=== PATIENT | female | born 1960 | race Caucasian/White ===

== ENCOUNTER 2016-03-23 22:38 | Emergency (ER) | payer BC ==
[~2016-03-23] VITALS: Ht 167.6 cm; Wt 100.0 kg
[~2016-03-23 22:38] MED LIST: ALEVE220 MG PO; CEPHALEXIN500 M1 PO; CETIRIZINE PO; CIPRO 500MG TA500 MG PO; CLIMARA 0.1 PATCH.WK TD; CLIMARA. TD; CLIMARA0.1 MG/24 TD; CLINDAMAX TP; DEMEROL 50M50 MG/TAB PO; IMODIUM 2MG CAPS2 MG PO; LISINOPRIL5 MG PO; LOPERAMIDE HCL2 MG PO; LORTAB 5/500 501 TAB PO; METRONIDAZOLE500 MG PO; PHENERGAN 25 TA25 MG PO; PRAVACHOL 20MG20 MG PO; PRILOSEC 20MG20 MG PO; PROMETRIUM200 MG PO; TOPROL XL 25MG25 MG PO; VITAMIN D32000 IU PO; VITAMIN D50000 I1 PO; VITAMIN D50000 IU PO; ZIANA 1.2%-0.021 GEL; [UNRECOGNIZED DRUG - OTHER] TP; prometrium PO; tetracycline PO
[2016-03-23 22:42] VITALS: TEMP 98.5
[2016-03-23] MEDS ORDERED: MULTIPLE VITAMI1 CAP PO (23:14)
[2016-03-23] MEDS ORDERED: PHOS LO (23:15)
[2016-03-23] MEDS ORDERED: ZOFRAN8 MG PO (23:18)
[2016-03-23] MEDS ORDERED: ULTRAM 50MG TAB50 MG PO (23:18)
[2016-03-23 23:25] LABS: BASO # 0.1 (0.0-0.2); BASO % 0.3 % (0.0-2.0); EOS # 0.1 (0.0-0.7); EOS % 0.5 % (0-4.0); GRAN # 16.2 (1.4-6.5); GRAN % 86.6 % (42.2-75.2); HEMATOCRIT 46.5 % (37.0-47.0); HEMOGLOBIN 15.5 g/dl (12.5-16.0); LYMPH # 1.7 (1.2-3.4); MEAN CELL VOLUME 87 fl (80.0-100.0); MEAN CORPUSCULAR HEMOGLOBIN 29 pg (27.0-31.0); MEAN CORPUSCULAR HGB CONC 33 g/dl (33.0-37.0); MEAN PLATELET VOLUME 10.7 fl (7.4-10.4); MONO # 0.6 (0.1-0.6); MONO % 3.2 % (1.7-9.3); PLATELET COUNT 312 K/mm3 (130-400); RED BLOOD COUNT 5.36 M/mm3 (4.10-5.30); REDCELL DISTRIBUTION WIDTH-CV 13.8 % (11.5-14.5); WHITE BLOOD COUNT 18.7 K/mm3 (4.8-10.8)
[2016-03-23 23:34] LABS: ADJUSTED CALCIUM 9.7 mg/dL (8.4-10.2); ALBUMIN 4.9 gm/dL (3.5-5.0); BILIRUBIN,TOTAL 0.8 mg/dL (0.0-1.0); CALCIUM 10.4 mg/dL (8.4-10.2); CREATININE, serum 0.98 mg/dL (0.52-1.25); TOTAL PROTEIN 8.7 gm/dL (6.4-8.2)
[2016-03-24 00:34] VITALS: BP 118/73; PULSE 62
== END 2016-03-24 00:46 | disposition home or self-care (01) ==
LOC: COL.ER 22:38
PROVIDERS: Emergency Medicine
DX: R10.13 Epigastric pain (principal); R11.10 Vomiting, unspecified; R19.7 Diarrhea, unspecified; Z90.49 Acquired absence of other specified parts of digestive tract; I10 Essential (primary) hypertension
CPT/HCPCS: J1885; J2175; J2405; J7030

== ENCOUNTER → 2016-05-21 | Outpatient (CLI) | payer BC ==
[~2016-05-21] MED LIST changes: +MULTIPLE VITAMI1 CAP PO; +PHOS LO; +ULTRAM 50MG TAB50 MG PO; +ZOFRAN8 MG PO
== END ==
LOC: MC.RAD 13:20
DX: Z12.31 Encounter for screening mammogram for malignant neoplasm of breast (principal)

== ENCOUNTER 2017-07-06 08:18 | Observation (INO) | payer BC ==
[~2017-07-06] VITALS: Ht 167.6 cm; Wt 102.0 kg
[~2017-07-06 08:18] MED LIST changes: +ESTROGEL0.06% TOP; +PROMETRIUM200 M1 PO; -PROMETRIUM200 MG PO
[2017-07-06 08:53] LABS: BASO # 0.1 (0.0-0.2); BASO % 0.4 % (0.0-2.0); EOS # 0.2 (0.0-0.7); EOS % 0.9 % (0-4.0); GRAN # 13.5 (1.4-6.5); GRAN % 79.7 % (42.2-75.2); HEMATOCRIT 46.7 % (37.0-47.0); HEMOGLOBIN 15.5 g/dl (12.5-16.0); LYMPH # 2.3 (1.2-3.4); LYMPH % 13.5 % (20.0-51.0); MEAN CELL VOLUME 88 fl (80.0-100.0); MEAN CORPUSCULAR HEMOGLOBIN 29 pg (27.0-31.0); MEAN CORPUSCULAR HGB CONC 33 g/dl (33.0-37.0); MEAN PLATELET VOLUME 10.3 fl (7.4-10.4); MONO # 0.9 (0.1-0.6); MONO % 5.1 % (1.7-9.3); PLATELET COUNT 315 K/mm3 (130-400); RED BLOOD COUNT 5.29 M/mm3 (4.10-5.30); REDCELL DISTRIBUTION WIDTH-CV 13.7 % (11.5-14.5)
[2017-07-06 09:08] LABS: ALBUMIN 4.7 gm/dL (3.5-5.0); BILIRUBIN,TOTAL 0.7 mg/dL (0.0-1.0); C-REACTIVE PROTEIN 2.5 mg/dL (0.0-0.9); CALCIUM 10.7 mg/dL (8.4-10.2); CREATININE, serum 0.89 mg/dL (0.52-1.25); POTASSIUM 4.2 mmol/L (3.4-5.0); TOTAL PROTEIN 9.1 gm/dL (6.4-8.2)
[2017-07-06 10:42] LABS: COLLECTION METHOD CLEAN CATCH
[2017-07-06 10:48] LABS: MUCOUS Present /lpf; SQUAMOUS EPITHELIAL 0-2 /hpf; URINE BACTERIA None Seen /hpf; URINE RBC 0-2 /hpf
[2017-07-06 10:52] LABS: URINE APPEARANCE Clear; URINE COLOR Straw
[2017-07-06 10:53] LABS: PH 5 (5-8); URINE BILIRUBIN Negative (NEGATIVE); URINE BLOOD 1+ (NEGATIVE); URINE GLUCOSE Negative (NEGATIVE); URINE KETONE Negative (NEGATIVE); URINE LEUKOCYTE ESTERASE Negative (NEGATIVE); URINE NITRATE Negative (NEGATIVE); URINE PROTEIN(semi-quant) Negative (NEGATIVE); URINE UROBILINOGEN Negative (NEGATIVE)
[2017-07-06 12:06] VITALS: BP 109/45; PULSE 63; TEMP 97.6
[2017-07-06 12:50] VITALS: BP 109/45; PULSE 63; TEMP 97.6
[2017-07-06 16:21] LABS: HEMATOCRIT 44.9 % (37.0-47.0); HEMOGLOBIN 14.5 g/dl (12.5-16.0); MEAN CELL VOLUME 91 fl (80.0-100.0); MEAN CORPUSCULAR HEMOGLOBIN 29 pg (27.0-31.0); MEAN CORPUSCULAR HGB CONC 32 g/dl (33.0-37.0); MEAN PLATELET VOLUME 10.5 fl (7.4-10.4); PLATELET COUNT 258 K/mm3 (130-400); RED BLOOD COUNT 4.93 M/mm3 (4.10-5.30); REDCELL DISTRIBUTION WIDTH-CV 13.6 % (11.5-14.5)
[2017-07-06 16:28] VITALS: BP 117/48; PULSE 72; TEMP 98.9
[2017-07-06 17:10] LABS: BAND 27 % (0-10); EOSINOPHIL 1 % (0-4); LYMPHOCYTE 6 % (20.0-51.0); NEUTROPHILS 63 % (42.0-75.2)
[2017-07-06 17:13] LABS: PLATELET ESTIMATE NORMAL (NORMAL)
[2017-07-06 19:30] VITALS: BP 102/44; PULSE 70; TEMP 99
[2017-07-06 23:53] VITALS: BP 123/48; PULSE 65; TEMP 98.3
[2017-07-07 03:07] VITALS: BP 103/44; PULSE 71; TEMP 98.6
[2017-07-07 06:39] LABS: BASO % 0.2 % (0.0-2.0); EOS # 0.1 (0.0-0.7); EOS % 1.1 % (0-4.0); GRAN # 6.5 (1.4-6.5); GRAN % 69.5 % (42.2-75.2); LYMPH % 21.8 % (20.0-51.0); MEAN CELL VOLUME 92 fl (80.0-100.0); MEAN CORPUSCULAR HEMOGLOBIN 29 pg (27.0-31.0); MEAN CORPUSCULAR HGB CONC 32 g/dl (33.0-37.0); MEAN PLATELET VOLUME 10.2 fl (7.4-10.4); MONO # 0.7 (0.1-0.6); MONO % 7.1 % (1.7-9.3); PLATELET COUNT 238 K/mm3 (130-400); RED BLOOD COUNT 4.22 M/mm3 (4.10-5.30)
[2017-07-07 06:43] LABS: HEMOGLOBIN 12.4 g/dl (12.5-16.0)
[2017-07-07 06:54] LABS: CALCIUM 8.4 mg/dL (8.4-10.2); CREATININE, serum 0.92 mg/dL (0.52-1.25); POTASSIUM 3.8 mmol/L (3.4-5.0)
[2017-07-07 07:18] VITALS: BP 104/46; PULSE 59; TEMP 98.2
[2017-07-07 11:13] VITALS: BP 121/57; PULSE 75; TEMP 98.5
[2017-07-07 15:21] VITALS: BP 110/48; PULSE 77; TEMP 97.9
== END 2017-07-07 16:10 | disposition home or self-care (01) ==
LOC: COL.ER 08:18 → SURG 10:22
PROVIDERS: Emergency Medicine; Surgery
DX: K56.609 Unspecified intestinal obstruction, unspecified as to partial versus complete obstruction (principal); Z80.0 Family history of malignant neoplasm of digestive organs; Z88.2 Allergy status to sulfonamides; Z88.5 Allergy status to narcotic agent; Z88.1 Allergy status to other antibiotic agents; Z88.8 Allergy status to other drugs, medicaments and biological substances; Z88.6 Allergy status to analgesic agent
CPT/HCPCS: G0378; J1170; J2405; J2550; J3010; J7030; J7120; Q9967

== ENCOUNTER 2018-08-09 04:56 | Inpatient (IN) | payer BC ==
[~2018-08-09] VITALS: Ht 167.6 cm; Wt 103.7 kg
[2018-08-09 05:23] LABS: BASO # 0.1 (0.0-0.2); BASO % 0.4 % (0.0-2.0); EOS # 0.3 (0.0-0.7); EOS % 1.8 % (0-4.0); GRAN # 10.3 (1.4-6.5); HEMATOCRIT 44.4 % (37.0-47.0); HEMOGLOBIN 14.5 g/dl (12.5-16.0); LYMPH # 2.1 (1.2-3.4); LYMPH % 15.1 % (20.0-51.0); MEAN CELL VOLUME 90 fl (80.0-100.0); MEAN CORPUSCULAR HEMOGLOBIN 30 pg (27.0-31.0); MEAN CORPUSCULAR HGB CONC 33 g/dl (33.0-37.0); MEAN PLATELET VOLUME 9.8 fl (7.4-10.4); MONO # 0.8 (0.1-0.6); MONO % 6.1 % (1.7-9.3); PLATELET COUNT 282 K/mm3 (130-400); RED BLOOD COUNT 4.91 M/mm3 (4.10-5.30); REDCELL DISTRIBUTION WIDTH-CV 13.4 % (11.5-14.5)
[2018-08-09 05:48] LABS: ALANINE AMINOTRANSFERASE 12 U/L (9-52); ALBUMIN 4.5 gm/dL (3.5-5.0); ALKALINE PHOSPHATASE 102 U/L (50-136); ANION GAP 13 mmol/L (7-16); AST,SGOT 22 U/L (15-37); BILIRUBIN,TOTAL 0.5 mg/dL (0.0-1.0); BLOOD UREA NITROGEN 20 mg/dL (7-17); C-REACTIVE PROTEIN 2.1 mg/dL (0.0-0.9); CALCIUM 10.5 mg/dL (8.4-10.2); CARBON DIOXIDE 20 mmol/L (22-30); CHLORIDE 106 mmol/L (98-107); CREATININE, serum 0.83 (0.52-1.25); GLUCOSE 109 mg/dL (74-106); LIPASE 116 U/L (23-300); POTASSIUM 4.2 mmol/L (3.4-5.0); SODIUM 139 mmol/L (137-145)
[2018-08-09 05:59] LABS: TROPONIN-I < 0.012 ng/mL (0.000-0.035)
[2018-08-09 09:58] LABS: COLLECTION METHOD CLEAN CATCH
[2018-08-09 10:04] LABS: MUCOUS Present /lpf; PH 5 (5-8); URINE APPEARANCE Clear; URINE BACTERIA None Seen /hpf; URINE BILIRUBIN Negative (NEGATIVE); URINE BLOOD Negative (NEGATIVE); URINE COLOR Yellow; URINE GLUCOSE Negative (NEGATIVE); URINE KETONE Negative (NEGATIVE); URINE LEUKOCYTE ESTERASE Negative (NEGATIVE); URINE NITRATE Negative (NEGATIVE); URINE PROTEIN(semi-quant) Negative (NEGATIVE); URINE UROBILINOGEN Negative (NEGATIVE)
[2018-08-09] MEDS ORDERED: VITAMIND3 5000 PO (11:06)
[2018-08-09] MEDS ORDERED: TUMS500 MG PO (11:07)
[2018-08-09] MEDS ORDERED: CALCIUM 600 PLU1 TAB PO (11:07)
[2018-08-09] MEDS ORDERED: BENADRYL25 M2 PO (11:09)
[2018-08-09] MEDS ORDERED: EPIPEN 2-PAK1 MG/ML IM (11:10)
[2018-08-09 11:43] VITALS: BP 110/65; PULSE 50; TEMP 97.5
[2018-08-09 15:11] VITALS: BP 110/53; PULSE 62; TEMP 98
--- NOTE | 2018-08-09 17:16 | NUR ---
Pt resting in bed with spouse at bedside. Pt alert and oriented. Pt rates abd pain at 2/10. Pt states that the demerol and zofran combination worked very well. No N/V. Pt had med soft loose BM and clear yellow output. Pt IV has LR running per orders no redness or infiltration noted. gave phone orer for SCD's.
--- NOTE | 2018-08-09 19:10 | NUR ---
Pt Zofran order changed to Q4 per TORB from DR. Capone. Pt given Zofran and Demerol for nausea and pain managemnet for small bowel obstruction. Pt denies further needs and has call light in reach and spouse at bedside.
[2018-08-09 19:25] VITALS: BP 119/70; PULSE 55; TEMP 98.1
--- NOTE | 2018-08-09 20:59 | NUR ---
PT IN BED RESTING. PT WAS GIVEN PAIN MEDICATION BEFORE SHIFT START. PT CALLS AFTER EVERY STOOL. PT A/O X4. NO NEEDS AT THIS TIME, CALL LIGHT WITHIN REACH.
[2018-08-09 23:01] VITALS: BP 110/62; PULSE 56; TEMP 98.3
--- NOTE | 2018-08-10 02:17 | NUR ---
PT SLEEPING/RESTING WITH NO S/S OF PAIN OR DISCOMFORT NOTED. CALL LIGHT WITHIN REACH.
[2018-08-10 03:40] VITALS: BP 134/63; PULSE 71; TEMP 98.1
[2018-08-10 06:09] LABS: BASO % 0.3 % (0.0-2.0); EOS # 0.1 (0.0-0.7); GRAN # 4.1 (1.4-6.5); HEMATOCRIT 37.6 % (37.0-47.0); LYMPH # 1.8 (1.2-3.4); MEAN CELL VOLUME 92 fl (80.0-100.0); MEAN CORPUSCULAR HEMOGLOBIN 29 pg (27.0-31.0); MEAN CORPUSCULAR HGB CONC 31 g/dl (33.0-37.0); MEAN PLATELET VOLUME 9.7 fl (7.4-10.4); MONO # 0.5 (0.1-0.6); MONO % 7.4 % (1.7-9.3); PLATELET COUNT 221 K/mm3 (130-400); REDCELL DISTRIBUTION WIDTH-CV 13.3 % (11.5-14.5)
[2018-08-10 06:23] LABS: HEMOGLOBIN 11.8 g/dl (12.5-16.0)
[2018-08-10 06:33] LABS: CALCIUM 8.5 mg/dL (8.4-10.2); CREATININE, serum 0.83 (0.52-1.25); POTASSIUM 3.8 mmol/L (3.4-5.0)
--- NOTE | 2018-08-10 06:59 | NUR ---
UNEVENTFUL NIGHT. PT DID NOT C/O PAIN UNTIL ABOUT 0545 THIS AM. PT HAD HEADACHE RATED AT 4/10 AND PT REQUEST DEMORAL FOR PAIN, WELL ZOFRAN FOR NAUSEA. PT RECEIVED MEDICATION AND WENT BACK TO SLEEP. CALL LIGHT WITHIN REACH.
[2018-08-10 08:31] VITALS: BP 118/70; PULSE 62; TEMP 97.9
--- NOTE | 2018-08-10 09:44 | NUR ---
Pt assessment complete and charted. Pt c/o headache, administered tylenol PRN per APR. Denies chest pain, SOB, dizziness, abdominal pain. No guarding or tenderness on abdominal assessment. Denies vomiting, reports some nausea w/ headache. Received zofran and demerol this morning per shift supervisor melting nurse. Diet advanced to clear liquids, IV INT if tolerating liquids. No other needs at this time. Pt up to shower. Call light within reach.
--- NOTE | 2018-08-10 10:40 | NUR ---
Initial visit; Patient indisposed, Roads Superintendent spoke with her who said their Wrong Address Clerk was aware of Nedra's hospitalization.
[2018-08-10 11:47] VITALS: BP 125/62; PULSE 62; TEMP 97.8
--- NOTE | 2018-08-10 11:50 | NUR ---
Pt laying in bed family and friend at bedside. This nurse checked in on pt to see how she was tolerating liquids and if her headache improved. Pt reports "feeling a lot better. Ate some jello, was going to try and eat some more here in a few". Denies nausea and pain. Call light within reach.
--- NOTE | 2018-08-10 16:28 | NUR ---
SW met with patient about discharge planning. Patient lives independently at home with her . Patient's PCP was Dr Bo and she obtains prescriptions from [facility]. Patient does not have any difficulties obtaining medications. Patient reports she does not have a DPOA-HC and is not interested in obtaining one at this time. SW does not anticipate any discharge needs.
--- NOTE | 2018-08-10 16:30 | NUR ---
patient c/o headache. This nurse administered tylenol PRN per APR. patient to order lunch since diet was advanced to general. No other new complaints at this time.
[2018-08-10 16:59] VITALS: BP 141/62; PULSE 62; TEMP 98.2
[2018-08-10 18:52] VITALS: BP 120/62; PULSE 65; TEMP 98.5
--- NOTE | 2018-08-10 19:00 | NUR ---
Report given to J CARLOS Pan. Patient states her headache is at a 2 or 3 out of 10. Tolerated food well, ate about 80-90%. No complaints of n/v or abdominal pain.
--- NOTE | 2018-08-10 21:30 | NUR ---
Pt. sitting up in bed at this time. Pt. is A&OX3, assessment complete. Pt. denies pain or other needs at this time. Call light within reach
[2018-08-10 22:59] VITALS: BP 108/55; PULSE 67; TEMP 98.6
[2018-08-11 04:06] VITALS: BP 107/37; PULSE 69; TEMP 98.1
--- NOTE | 2018-08-11 07:00 | NUR ---
Report received from J CARLOS Pan. PT in bed resting, anticipating discharge today, will conitnue to monitor.
[2018-08-11 08:07] VITALS: BP 116/60; PULSE 70; TEMP 98.3
--- NOTE | 2018-08-11 08:30 | NUR ---
Assessment charted. Pt feeling well, has no pain, having bowel movements. INT to dc'd, tip intact. Discharge packet reviewed, discussed f/u, no new medications. Answered all qeustions. Pt left with all belongings, escorted out by medical staff, to drive home, criteria met.
== END 2018-08-11 08:30 | disposition home or self-care (01) | DRG 389 ==
LOC: COL.ER 04:56 → MEDICAL 07:21
PROVIDERS: Emergency Medicine; ADMIT Surgery
DX: K56.50 Intestinal adhesions [bands], unspecified as to partial versus complete obstruction (principal); K51.90 Ulcerative colitis, unspecified, without complications; I10 Essential (primary) hypertension; M19.90 Unspecified osteoarthritis, unspecified site; G43.909 Migraine, unspecified, not intractable, without status migrainosus; Z88.1 Allergy status to other antibiotic agents; Z88.2 Allergy status to sulfonamides; Z88.8 Allergy status to other drugs, medicaments and biological substances; Z93.8 Other artificial opening status
CPT/HCPCS: J1170; J2175; J2405; J3010; J7030; J7120; Q9967

== ENCOUNTER 2019-02-14 08:48 | Inpatient (IN) | payer BC ==
[~2019-02-14] VITALS: Ht 167.6 cm; Wt 101.5 kg
[~2019-02-14 08:48] MED LIST changes: +BENADRYL25 M2 PO; +CALCIUM 600 PLU1 TAB PO; +EPIPEN 2-PAK1 MG/ML IM; +TUMS500 MG PO; +VITAMIND3 5000 PO
[2019-02-14 10:18] LABS: BASO % 0.3 % (0.0-2.0); EOS % 0.2 % (0-4.0); GRAN # 11.4 (1.4-6.5); GRAN % 88.4 % (42.2-75.2); HEMATOCRIT 45.7 % (37.0-47.0); HEMOGLOBIN 14.7 g/dl (12.5-16.0); LYMPH % 7.9 % (20.0-51.0); MEAN CELL VOLUME 91 fl (80.0-100.0); MEAN CORPUSCULAR HEMOGLOBIN 29 pg (27.0-31.0); MEAN CORPUSCULAR HGB CONC 32 g/dl (33.0-37.0); MEAN PLATELET VOLUME 10.1 fl (7.4-10.4); MONO # 0.4 (0.1-0.6); MONO % 2.8 % (1.7-9.3); PLATELET COUNT 278 K/mm3 (130-400); RED BLOOD COUNT 5.03 M/mm3 (4.10-5.30); REDCELL DISTRIBUTION WIDTH-CV 13.3 % (11.5-14.5)
[2019-02-14 10:31] LABS: ALBUMIN 4.8 gm/dL (3.5-5.0); BILIRUBIN,TOTAL 0.5 mg/dL (0.0-1.0); CREATININE, serum 0.94 (0.52-1.25); TOTAL PROTEIN 8.2 gm/dL (6.4-8.2)
[2019-02-14 10:48] LABS: COLLECTION METHOD CLEAN CATCH
[2019-02-14 10:57] LABS: MUCOUS Present /lpf; PH 8 (5-8); URINE APPEARANCE Cloudy; URINE BACTERIA Rare /hpf; URINE BILIRUBIN Negative (NEGATIVE); URINE BLOOD Negative (NEGATIVE); URINE COLOR Yellow; URINE GLUCOSE Negative (NEGATIVE); URINE KETONE Trace (NEGATIVE); URINE LEUKOCYTE ESTERASE Negative (NEGATIVE); URINE NITRATE Negative (NEGATIVE); URINE PROTEIN(semi-quant) 1+ (NEGATIVE); URINE UROBILINOGEN Negative (NEGATIVE)
[2019-02-14 15:05] VITALS: BP 118/53; PULSE 63; TEMP 97.9
[2019-02-14 15:06] VITALS: BP 118/53; PULSE 63; TEMP 97.9
[2019-02-14 20:06] VITALS: BP 99/44; PULSE 65; TEMP 97.9
[2019-02-14 23:11] VITALS: BP 95/44; PULSE 65; TEMP 98.3
[2019-02-15 03:39] VITALS: BP 109/55; PULSE 60; TEMP 98.1
[2019-02-15 07:03] LABS: BASO % 0.1 % (0.0-2.0); EOS # 0.2 (0.0-0.7); EOS % 3.2 % (0-4.0); GRAN # 4.3 (1.4-6.5); GRAN % 59.7 % (42.2-75.2); HEMATOCRIT 37.9 % (37.0-47.0); LYMPH # 2.1 (1.2-3.4); LYMPH % 29.8 % (20.0-51.0); MEAN CORPUSCULAR HGB CONC 31 g/dl (33.0-37.0); MEAN PLATELET VOLUME 10.4 fl (7.4-10.4); MONO # 0.5 (0.1-0.6); MONO % 6.9 % (1.7-9.3); PLATELET COUNT 220 K/mm3 (130-400); RED BLOOD COUNT 3.97 M/mm3 (4.10-5.30); REDCELL DISTRIBUTION WIDTH-CV 13.6 % (11.5-14.5)
[2019-02-15 07:16] LABS: HEMOGLOBIN 11.7 g/dl (12.5-16.0); MEAN CELL VOLUME 96 fl (80.0-100.0); MEAN CORPUSCULAR HEMOGLOBIN 29 pg (27.0-31.0)
[2019-02-15 07:19] LABS: CREATININE, serum 0.77 (0.52-1.25); POTASSIUM 4.2 mmol/L (3.4-5.0)
[2019-02-15 08:07] VITALS: BP 107/45; PULSE 57; TEMP 98.2
[2019-02-15 11:50] VITALS: BP 123/62; PULSE 66; TEMP 97.5
== END 2019-02-15 15:30 | disposition home or self-care (01) | DRG 390 ==
LOC: COL.ER 08:48 → SURG 11:30
PROVIDERS: Nurse Practitioner Primary Care; ADMIT Surgery
DX: K56.51 Intestinal adhesions [bands], with partial obstruction (principal); I10 Essential (primary) hypertension; Z90.49 Acquired absence of other specified parts of digestive tract; Z98.51 Tubal ligation status; Z90.89 Acquired absence of other organs; Z87.442 Personal history of urinary calculi
CPT/HCPCS: J1170; J2405; J3480; J7030; Q9967

== ENCOUNTER → 2019-02-23 | Outpatient (CLI) | payer BC | LOC: MC.RAD 13:17 | DX: Z12.31 Encounter for screening mammogram for malignant neoplasm of breast (principal) ==

== ENCOUNTER 2019-06-14 12:51 | Observation (INO) | payer BC ==
[~2019-06-14] VITALS: Ht 167.6 cm; Wt 105.4 kg
[2019-06-14 13:31] LABS: BASO # 0.1 (0.0-0.2); BASO % 0.4 % (0.0-2.0); EOS # 0.1 (0.0-0.7); EOS % 0.8 % (0-4.0); GRAN # 12.6 (1.4-6.5); GRAN % 82.9 % (42.2-75.2); HEMATOCRIT 46.8 % (37.0-47.0); HEMOGLOBIN 15.3 g/dl (12.5-16.0); LYMPH # 1.6 (1.2-3.4); LYMPH % 10.6 % (20.0-51.0); MEAN CELL VOLUME 89 fl (80.0-100.0); MEAN CORPUSCULAR HEMOGLOBIN 29 pg (27.0-31.0); MEAN CORPUSCULAR HGB CONC 33 g/dl (33.0-37.0); MONO # 0.7 (0.1-0.6); MONO % 4.8 % (1.7-9.3); PLATELET COUNT 270 K/mm3 (130-400); RED BLOOD COUNT 5.27 M/mm3 (4.10-5.30); REDCELL DISTRIBUTION WIDTH-CV 13.6 % (11.5-14.5)
[2019-06-14 13:50] LABS: ALBUMIN 4.9 gm/dL (3.5-5.0); BILIRUBIN,TOTAL 0.6 mg/dL (0.0-1.0); C-REACTIVE PROTEIN 1.7 mg/dL (0.0-0.9); CALCIUM 10.2 mg/dL (8.4-10.2); CREATININE, serum 0.84 (0.52-1.25); POTASSIUM 4.2 mmol/L (3.4-5.0); TOTAL PROTEIN 8.6 gm/dL (6.4-8.2)
[2019-06-14 15:56] VITALS: BP 126/59; PULSE 65; TEMP 97.9
--- NOTE | 2019-06-14 16:20 | NUR ---
Account Support Associate met with patient to discuss discharge planning. Patient lives in [place] with her , Raymundo (ph#[phone]) [address] sees Dr. Bo for primary care. Patient obtains medications from [facility] with no difficulties. Patient does not use DME and reports [facility] AD[facility]. Patient reports she has DPOA-HC paperwork located somewhere at home. Patient plans to return home upon discharge. No additional needs at this time.
--- NOTE | 2019-06-14 16:25 | NUR ---
Contacted Dr. Torres, initial and 5 page complete. Patient oriented to room. States she had a BM when she got up to the floor. INT to left forarm. States she has been having cramping abdominal pain. Denies need for pain medications at this time.
--- NOTE | 2019-06-14 18:54 | NUR ---
Patient has done well this afternoon. Dilaudid given this afternoon for abdominal cramping 08/23, states relief after administration. Fluids infusing per orders. Patient independent in room. Has had x3 BM since up to floor, loose per patient. Denies further needs at this time. Will report off to mine shifter.
[2019-06-14 19:49] VITALS: BP 93/45; PULSE 70; TEMP 98.5
--- NOTE | 2019-06-14 20:30 | NUR ---
Initial shift assessment done- denies abd pain/or cramping at this time- abd soft- hypoactive bowel sounds - states did have 3 loose small stools on day shift- Iv fluids of D5 NS w/20KCL at 75cc/hr
[2019-06-15 00:15] VITALS: BP 88/43; PULSE 63; TEMP 98.6
[2019-06-15 03:46] VITALS: BP 98/49; PULSE 58; TEMP 98
--- NOTE | 2019-06-15 05:33 | NUR ---
Very Quiet night- no requests for pain meds- has been sleeping well, Up to the bathroom now ,denies any needs-remains NPO
[2019-06-15 06:40] LABS: BASO % 0.3 % (0.0-2.0); EOS # 0.2 (0.0-0.7); EOS % 2.1 % (0-4.0); GRAN # 5.4 (1.4-6.5); GRAN % 67.6 % (42.2-75.2); HEMATOCRIT 38.7 % (37.0-47.0); LYMPH # 1.8 (1.2-3.4); MEAN CELL VOLUME 92 fl (80.0-100.0); MEAN CORPUSCULAR HEMOGLOBIN 30 pg (27.0-31.0); MEAN CORPUSCULAR HGB CONC 33 g/dl (33.0-37.0); MEAN PLATELET VOLUME 9.9 fl (7.4-10.4); MONO # 0.5 (0.1-0.6); MONO % 6.7 % (1.7-9.3); PLATELET COUNT 221 K/mm3 (130-400); REDCELL DISTRIBUTION WIDTH-CV 13.9 % (11.5-14.5)
[2019-06-15 06:52] LABS: HEMOGLOBIN 12.6 g/dl (12.5-16.0)
[2019-06-15 06:55] LABS: ALBUMIN 3.5 gm/dL (3.5-5.0); BILIRUBIN,TOTAL 0.4 mg/dL (0.0-1.0); CALCIUM 8.4 mg/dL (8.4-10.2); CREATININE, serum 0.79 (0.52-1.25); POTASSIUM 4.1 mmol/L (3.4-5.0); TOTAL PROTEIN 6.3 gm/dL (6.4-8.2)
--- NOTE | 2019-06-15 08:00 | NUR ---
Patient in bed resting. Alert and oriented x 3. Assessment complete. Patient states she has had several BMs throughout the night as well as a BM today. Fluids infusing per orders. Denies pain or further needs at this time.
[2019-06-15 08:14] VITALS: BP 101/52; PULSE 65; TEMP 98.2
[2019-06-15 12:22] VITALS: BP 123/77; PULSE 66; TEMP 97.5
--- NOTE | 2019-06-15 16:10 | NUR ---
Patient tolerating diet without difficulties. Continues to have BMs throughout the day. Discharge education provided. Educated patient on follow up appointments and when to call provider. INT to right forarm discontinued. All questions answered. Patient ambulated out with surgical staff.
== END 2019-06-15 16:10 | disposition home or self-care (01) ==
LOC: COL.ER 12:51 → SURG 14:23
PROVIDERS: Emergency Medicine; ADMIT Surgery
DX: K56.600 Partial intestinal obstruction, unspecified as to cause (principal); Z90.49 Acquired absence of other specified parts of digestive tract; I10 Essential (primary) hypertension; Z79.899 Other long term (current) drug therapy; Z88.1 Allergy status to other antibiotic agents; Z88.2 Allergy status to sulfonamides; Z88.8 Allergy status to other drugs, medicaments and biological substances
CPT/HCPCS: G0378; J1170; J2405; J2550; J3480; J7030; Q9967

== ENCOUNTER → 2020-03-07 | Outpatient (CLI) | payer BC ==
[~2020-03-07] MED LIST changes: -MULTIPLE VITAMI1 CAP PO; +MULTIPLE VITAMI1 TA5 PO; +PRINIVIL5 MG PO; +PROMETRIUM100 MG PO; +TYLENOL 325MG325 MG PO; +VITAMIN D31000 IU PO
== END ==
LOC: MC.RAD 13:45
DX: Z12.31 Encounter for screening mammogram for malignant neoplasm of breast (principal); N63.20 Unspecified lump in the left breast, unspecified quadrant

== ENCOUNTER → 2020-03-13 | Outpatient (CLI) | payer BC | LOC: MC.RAD 10:00 | DX: N60.02 Solitary cyst of left breast (principal) ==

== ENCOUNTER 2020-12-24 14:30 | Inpatient (IN) | payer BC ==
[~2020-12-24] VITALS: Ht 167.6 cm; Wt 106.5 kg
[2020-12-24 15:10] LABS: BASO % 0.3 % (0.0-2.0); EOS # 0.1 K/mm3 (0.0-0.7); EOS % 0.7 % (0-4.0); GRAN # 11.5 K/mm3 (1.4-6.5); GRAN % 84.8 % (42.2-75.2); HEMATOCRIT 42.2 % (37.0-47.0); HEMOGLOBIN 13.7 g/dl (12.5-16.0); LYMPH # 1.2 K/mm3 (1.2-3.4); MEAN CELL VOLUME 90 fl (80.0-100.0); MEAN CORPUSCULAR HEMOGLOBIN 29 pg (27.0-31.0); MEAN CORPUSCULAR HGB CONC 33 g/dl (33.0-37.0); MEAN PLATELET VOLUME 9.6 fl (7.4-10.4); MONO # 0.7 K/mm3 (0.1-0.6); MONO % 4.8 % (1.7-9.3); PLATELET COUNT 256 K/mm3 (130-400); RED BLOOD COUNT 4.69 M/mm3 (4.10-5.30); REDCELL DISTRIBUTION WIDTH-CV 13.3 % (11.5-14.5)
[2020-12-24 15:40] LABS: ALBUMIN 3.9 gm/dL (3.4-4.8); BILIRUBIN,TOTAL 0.5 mg/dL (0.2-1.2); CALCIUM 9.4 mg/dL (8.4-10.2); CREATININE, serum 0.8 mg/dL (0.57-1.11); POTASSIUM 4.1 mmol/L (3.5-4.5); TOTAL PROTEIN 6.9 gm/dL (6.2-8.1)
[2020-12-24 18:13] VITALS: BP 123/68; PULSE 73; TEMP 98.7
--- NOTE | 2020-12-24 18:14 | NUR ---
PT CAME TO FLOOR FROM ED. PLEASANT, COOPERATIVE, ALERT/ORIENT. COMPLAINTS OF MILD CRAMPING PAIN. OTHERWISE, NO NEEDS AT THIS TIME. CALL [place] IN REACH
[2020-12-24 19:04] VITALS: BP 120/57; PULSE 70; TEMP 97.8
[2020-12-24 23:36] VITALS: BP 111/52; PULSE 72; TEMP 98.2
--- NOTE | 2020-12-25 01:17 | NUR ---
PT SLEEPING IN BED AT THIS TIME. IVF INFUSING. LAST NIGHT PT HAD REPORTED HAVING LOOSE DIARRHEA STOOLS. PT AMBULATES TO BR WITH STEADY GAIT ET NO ASSISTANCE NEEDED. BOWEL SOUNDS HAD BEEN HYPERACTIVE. HAD DENIED ANY NAUSEA. RESPIRATIONS ARE UNLABORED, CALL LIGHT WITHIN REACH.
--- NOTE | 2020-12-25 02:17 | NUR ---
PT IS AWAKE @ THIS TIME, STATES THAT SHE HAS SLEPT ALRIGHT, HAS INTERMITTENT MILD BACK PAIN FROM THE BED. PT DENIES NAUSEA BUT REPORTS HAVING 2 LIQUID DIARRHEA STOOLS. PT STATES THAT SHE NORMALLY HAS VERY SOFT STOOLS BUT DENIES HAVING LIQUID STOOLS REGULARLY. PT DENIES OTHER NEEDS @ THIS TIME. RESPIRATIONS UNLABORED, CALL LIGHT WITHIN REACH.
[2020-12-25 03:16] VITALS: BP 119/46; PULSE 67; TEMP 98.4
--- NOTE | 2020-12-25 07:25 | NUR ---
pT RESTING IN BED. REPORT RECIEVED FROM MUCK MINER BLASTING. NO COMPLAINTS OF PAIN OR DYSPNEA. NO SIGNS OR SYMPTOMS OF DISTRESS. CALL LIGHT WITHIN REACH
[2020-12-25 07:42] VITALS: BP 129/64; PULSE 63; TEMP 98.2
--- NOTE | 2020-12-25 09:26 | NUR ---
GLENYS met with the patient to discuss discharge plan. The patient lives in [place] with her , Raymundo (ph#[phone]). She reports [facility] with ADLs and does not have any DME. The patient's PCP is Dr. Noemí Weinberg and she receives her medications from [facility]. She reports no difficulties obtaining her meds. The patient does not have a DPOA-HC, but she was interested in obtaining a form. GLENYS provided. The patient plans to return home with her upon discharge. No additional needs at this time. *Discharge plan: home with *
[2020-12-25 11:28] LABS: BASO % 0.4 % (0.0-2.0); EOS # 0.1 K/mm3 (0.0-0.7); EOS % 1.7 % (0-4.0); GRAN # 4.2 K/mm3 (1.4-6.5); GRAN % 61.7 % (42.2-75.2); HEMATOCRIT 38.4 % (37.0-47.0); HEMOGLOBIN 12.4 g/dl (12.5-16.0); LYMPH # 2.1 K/mm3 (1.2-3.4); LYMPH % 30.1 % (20.0-51.0); MEAN CELL VOLUME 92 fl (80.0-100.0); MEAN CORPUSCULAR HEMOGLOBIN 30 pg (27.0-31.0); MEAN CORPUSCULAR HGB CONC 32 g/dl (33.0-37.0); MEAN PLATELET VOLUME 9.5 fl (7.4-10.4); MONO # 0.4 K/mm3 (0.1-0.6); MONO % 5.7 % (1.7-9.3); PLATELET COUNT 244 K/mm3 (130-400); RED BLOOD COUNT 4.18 M/mm3 (4.10-5.30); REDCELL DISTRIBUTION WIDTH-CV 13.4 % (11.5-14.5)
[2020-12-25 11:56] VITALS: BP 131/58; PULSE 72; TEMP 97.6
--- NOTE | 2020-12-25 13:07 | NUR ---
First visit from the set rider. No needs right now.
--- NOTE | 2020-12-25 15:26 | NUR ---
PT DISCHARGED. IV REMOVED. VERBALIZED UNDERSTANDING OF TEACHING. ALL QUESTIONS ANSWERED/
== END 2020-12-25 15:28 | disposition home or self-care (01) | DRG 390 ==
LOC: COL.ER 14:30 → SURG 16:46
PROVIDERS: Personal Emergency Response Attendant; ADMIT Surgery
DX: K56.609 Unspecified intestinal obstruction, unspecified as to partial versus complete obstruction (principal); I10 Essential (primary) hypertension; E78.00 Pure hypercholesterolemia, unspecified; Z93.2 Ileostomy status; Z87.442 Personal history of urinary calculi
CPT/HCPCS: J1170; J2405; J3010; J7030; J7120; Q9967

== ENCOUNTER 2023-09-28 08:08 | Emergency (ER) | payer OTHER ==
[~2023-09-28] VITALS: Ht 167.6 cm; Wt 106.8 kg
[2023-09-28] MEDS ORDERED: MEDROL 4MG DOSPA4 MG PO (10:13)
[2023-09-28] MEDS ORDERED: NORCO 325 MG-51 TAB PO (10:13)
[2023-09-28] MEDS ORDERED: ZOFRAN ODT4 MG PO (10:13)
[2023-09-28 10:36] VITALS: BP 136/77; PULSE 66; TEMP 97.7
== END 2023-09-28 10:36 | disposition home or self-care (01) ==
LOC: COL.ER 08:08
DX: M25.562 Pain in left knee (principal)